=== PATIENT | female | born 1985 | race Caucasian/White ===

== ENCOUNTER 2018-04-29 20:53 | Emergency (ER) | payer OTHER ==
[~2018-04-29] VITALS: Ht 172.7 cm; Wt 72.6 kg
[~2018-04-29 20:53] MED LIST: ACEASPCAF PO; AMOX500 PO; CEPH500 PO; CIPR250 PO; CIPR500 PO; CODACE30 PO; CYCL10 PO; Cipro500 MG PO; DEPRESSION MED; FAMO40 PO; HYDACE10B PO; HYDACE5 PO; IBUP400 PO; IBUP600 PO; IBUP800 PO; LANS1COM10 PO; METH5; METO10 PO; MULVITMINE PO; NAPR220 PO; NAPR500 PO; NAPR550 PO; Norco 5-325 Ta1 EACH PO; OMEP20ER PO; OMEP40CA12 PO; ONDA4 PO; ONDA4ODT MM; OSEL75CA PO; OXYACE5T PO; PENVK500 PO; PHENA200 PO; PREN-16 PO; PROC10 PO; PROC5 PO; PROM12.5S PR; PROM25 PO; PROM25S PR; Pepcid40 MG PO; Prilosec20 MG PO; Protonix40 MG PO; Pyridium100 MG PO; RANI150 PO; RXHYD5325 PO; RXONDA4ODT MM; RXOXYACE PO; SUBOXONE 8 MG-1 EACH; SUCR1 PO; SULTRIDS PO; Sucralfate1 GM PO; TRAM50 PO; Zofran Odt4 MG SL; [UNRECOGNIZED DRUG - OTHER]
[2018-04-29] MEDS ORDERED: Zofran4 MG PO (21:40)
== END 2018-04-29 21:45 | disposition home or self-care (01) ==
LOC: ER 20:53
DX: A08.4 Viral intestinal infection, unspecified (principal); Z88.5 Allergy status to narcotic agent; F17.200 Nicotine dependence, unspecified, uncomplicated
CPT/HCPCS: 99283

== ENCOUNTER 2025-02-26 12:45 | Emergency (ER) | payer OTHER ==
[~2025-02-26] VITALS: Ht 170.2 cm; Wt 65.8 kg
[~2025-02-26 12:45] MED LIST changes: +BUPR150ER PO; +BUPRENORPHINE1 EAC9 TD; +Zofran4 MG PO
[2025-02-26 12:49] VITALS: BP 120/79
[2025-02-26] MEDS ORDERED: NS 1,000 ML IV SCH (13:00)
[2025-02-26 13:16] LABS: BASOPHILS ABSOLUTE AUTO 0.04 K/mm3 (0.00-0.23); BASOPHILS PERCENT AUTO 0 % (0-2); EOSINOPHILS ABSOLUTE AUTO 0.00 K/mm3 (0.00-0.68); EOSINOPHILS PERCENT AUTO 0 % (0-6); Hematocrit 33.3 % (33.0-51.0); Hemoglobin 11.8 g/dL (11.5-16.0); IMMATURE GRAN ABSOLUTE AUTO 0.06 K/mm3 (0.00-0.10); IMMATURE GRAN PERCENT AUTO 0 % (0-1); LYMPHOCYTES ABSOLUTE AUTO 1.10 K/mm3 (0.84-5.20); LYMPHOCYTES PERCENT AUTO 6 % (21-46); MONOCYTES ABSOLUTE AUTO 2.52 K/mm3 (0.16-1.47); MONOCYTES PERCENT AUTO 15 % (4-13); Mean Corpuscular HGB Conc 35.4 g/dL (31.5-36.5); Mean Corpuscular Volume 87 fL (80-100); NEUTROPHILS ABSOLUTE AUTO 13.39 K/mm3 (1.96-9.15); NEUTROPHILS PERCENT AUTO 78 % (41-73); NRBC ABSOLUTE 0.00 K/mm3 (0.00-0.02); NRBC Auto 0.0 /100 WBC (0.0-0.2); Platelet Count 203 K/mm3 (150-400); RDW Coefficient Variation 11.9 % (11.7-14.2); RDW Standard Deviation 37.9 fL (35.1-46.3)
[2025-02-26 14:03] LABS: Alanine Aminotransfer (ALT/SGP 27.0 U/L (12-78); Albumin, Blood 2.8 g/dL (3.4-5.0); Albumin/Globulin Ratio 0.7 (0.8-1.8); Anion Gap 9.0 mmol/L (3-11); Aspartate Aminotrans (AST/SGOT 24.0 U/L (12-37); Bilirubin, Total 0.7 mg/dL (0.1-1.0); Blood Urea Nitrogen 9.0 mg/dL (8-24); CO2, Blood 25.0 mmol/L (21-32); Calcium, Blood 9.1 mg/dL (8.5-10.1); Chloride, Blood 101.0 mmol/L (98-108); Creatinine, Blood 0.77 mg/dL (0.40-1.00); Globulin, Blood 4.2 g/dL (2.2-4.0); Glucose, Blood 115.0 mg/dL (70-99); Potassium, Blood 3.5 mmol/L (3.5-5.5); Sodium, Blood 131.0 mmol/L (136-145); Total Protein, Blood 7.0 g/dL (6.4-8.2)
== END 2025-02-26 14:00 | disposition left against medical advice (07) ==
LOC: ER 12:45
PROVIDERS: Physician Assistant
DX: R11.2 Nausea with vomiting, unspecified (principal); D72.829 Elevated white blood cell count, unspecified; R10.9 Unspecified abdominal pain; Z87.891 Personal history of nicotine dependence; Z88.8 Allergy status to other drugs, medicaments and biological substances
CPT/HCPCS: 74177; 80053; 83605; 83690; 85025; 99284-25; J7030; Q9967